=== PATIENT | male | born 1985 | race Caucasian/White ===

== ENCOUNTER 2021-07-01 09:27 | Emergency (ER) | payer SELFPAY ==
[2021-07-01] MEDS ORDERED: Tetracaine HCl/PF 0.5% 4 ML Bottle EYEBOTH ONE (09:33)
[2021-07-01] MEDS ORDERED: Erythromycin Base 0.5% Ophth Oint 1 GM Tube EYEBOTH ONE (10:13)
--- NOTE | 2021-07-01 10:17 | EDM.PDOC ---
ED HPI GENERAL MEDICAL PROBLEM - General Chief Complaint: Eye Problems Stated Complaint: LEFT EYE HAS METAL OBJECT IN IT Time Seen by Provider: 07/01/21 09:33 - History of Present Illness INITIAL COMMENTS - FREE TEXT/NARRATIVE: 36-year-old male who otherwise well was referred to us from the facility in [place] for left eye foreign body. Patient states that around 6 PM last night he was using a grinder set up operator external in his garage and a piece of metal flew into his eye. He has some increased tearing and pain that feels sharp whenever he blinks. He denies any diplopia blurry vision pain with extraocular movements or other symptoms. Symptoms moderate and constant without alleviating factors radiation or other associated symptoms. Left Eye Pain Score (Numeric/FACES): 4 - Related Data Allergies Allergy/AdvReac Type Severity Reaction Status Date / Time No Known Allergies Allergy Verified 07/01/21 09:42 Home Meds: Home Meds . [No Known Home Meds] 07/01/21 [History] Past Medical History - Infectious Disease History Infectious Disease History: Reports: Chicken Pox Social & Family History - Tobacco Use Tobacco Use Status *Q: Current Every Day Tobacco User Years of Tobacco use: 20 Packs/Tins Daily: 1 - Caffeine Use Caffeine Use: Reports: Coffee, Energy Drinks, Soda, Tea - Alcohol Use Days Per Week of Alcohol Use: 1 Number of Drinks Per Day: 1 Total Drinks Per Week: 1 - Recreational Drug Use Recreational Drug Use: No ED ROS GENERAL - Review of Systems Review Of Systems: See Below Free Text/Narrative/Comment: General: No fever. Eyes: Per HPI ENT: No sore throat. Neck: No neck stiffness. Respiratory: No shortness of breath. Neurologic: No headache. ED EXAM GENERAL W FULL EYE - Physical Exam Exam: See Below Text/Narrative:: General Appearance: No acute distress, appears comfortable Skin: No rash HEENT: Normocephalic/atraumatic, sclera anicteric, mucous membranes moist, pupils PERRLA, small foreign body visible on the surface of the cornea of the left eye no hypopyon or hyphema minimal left eye conjunctival injection normal lids and lashes Neck: Normal range of motion Neurologic: Awake, alert, no obvious deficits, moving all extremities Psychiatric: Appropriate, cooperative Course - Vital Signs Last Recorded V/S: Last Vital Signs Temp 97.8 F 07/01/21 09:43 Pulse 66 07/01/21 10:27 Resp 16 07/01/21 10:27 BP 122/74 07/01/21 10:27 Pulse Ox 97 07/01/21 10:27 - Orders/Labs/Meds Meds: Medications Discontinued Medications Generic Name Dose Route Start Last Admin Trade Name Ambika PRN Reason Stop Dose Admin Erythromycin 1 gm 07/01/21 10:13 07/01/21 10:25 Erythromycin Base 0.5% Ophth Oint 1 Gm Tube EYEBOTH 07/01/21 10:14 1 applic ONETIME ONE Administration Tetracaine HCl 1 ml 07/01/21 09:33 07/01/21 09:42 Tetracaine Hcl/Pf 0.5% 4 Ml Bottle EYEBOTH 07/01/21 09:34 1 dose ASDIRECTED ONE Administration Departure - Departure Time of Disposition: 10:11 Disposition: Home, Self-Care 01 Condition: Good Clinical Impression: Corneal foreign body - Discharge Information *PRESCRIPTION DRUG MONITORING PROGRAM REVIEWED*: Not Applicable *COPY OF PRESCRIPTION DRUG MONITORING REPORT IN PATIENT TETO: Not Applicable Instructions: Eye Foreign Body Referrals: Rogerio Martínez MD [Ordering Only Provider] - 2 Days Forms: ED Department Discharge Additional Instructions: It is very important you follow-up with Dr. Martínez. I called and spoke to him this morning. If you are still having any trouble tomorrow please call his cell phone [phone]. If you are doing well, then please call his clinic Saturday morning and they will make arrangements for you to be seen. Please apply the erythromycin ointment 3 times a day until you see him. The following information is given to patients seen in the emergency department who are being discharged to home. This information is to outline your options for follow-up care. We provide all patients seen in our emergency department with a follow-up referral. The need for follow-up, as well as the timing and circumstances, are variable depending upon the specifics of your emergency department visit. If you don't have a primary care physician on staff, we will provide you with a referral. We always advise you to contact your personal physician following an emergency department visit to inform them of the circumstance of the visit and for follow-up with them and/or the need for any referrals to a consulting specialist. The emergency department will also refer you to a specialist when appropriate. This referral assures that you have the opportunity for follow-up care with a specialist. All of these measure are taken in an effort to provide you with optimal care, which includes your follow-up. Under all circumstances we always encourage you to contact your private physician who remains a resource for coordinating your care. When calling for follow-up care, please make the office aware that this follow-up is from your recent emergency room visit. If for any reason you are refused follow-up, please contact the [facility] Emergency Department at and asked to speak to the emergency department charge nurse. Sepsis Event Note (ED) - Evaluation Sepsis Screening Result: No Definite Risk - Focused Exam Vital Signs: Vital Signs Temp Pulse Resp BP Pulse Ox 07/01/21 10:27 66 16 122/74 97 07/01/21 09:43 97.8 F 75 16 126/81 99 - Assessment/Plan Assessment:: 36-year-old male presents with left corneal foreign body as described. After verbal consent was obtained to the left eye was numbed with tetracaine the eye was examined with slit lamp confirming the presence of a metallic foreign body surface of the cornea. This was gently lifted out with a 21-gauge needle being careful not to insert the needle into the cornea over the eye in any way. The eye was then irrigated on close inspection with the slit lamp and examined carefully under both lids no foreign body was found to remain. There was a residual rust ring. Patient reports resolution of his symptoms after removal of the foreign body. Patient was discussed in full with Dr. Martínez of ophthalmology. He requested that the patient be provided with his cell phone number if he is having any problems tomorrow the patient is to call him. Otherwise he will follow up on Saturday for additional evaluation and intervention on the rust ring as needed.
== END 2021-07-01 10:27 | disposition home or self-care (01) ==
LOC: MW.ED 09:27
DX: T15.02XA Foreign body in cornea, left eye, initial encounter (principal); Z72.0 Tobacco use
CPT/HCPCS: 65222; 99283; A9270